=== PATIENT | male | born 1955 | race Caucasian/White ===

== ENCOUNTER 2020-11-30 05:37 | Day surgery (SDC) | payer MEDICARE ==
[~2020-11-30 05:37] MED LIST: AMIODARONE HCL200 MG PO; ASCORBIC ACID500 MG PO; B COMPLEX1 EACH PO; DICLOFENAC SODI75 MG PO; ELIQUIS5 MG PO; FEOSOL325 MG PO; GLUCOSAMINE CH1 EAC2 PO; LIPITOR 10MG TA10 MG PO; LOPRESSOR25 MG PO; NORCO 5-325 TA1 EACH PO; PANTOPRAZOLE SO40 MG PO; PERCOCET 5-3251 EACH PO; PROTONIX 40MG T40 MG PO; SERTRALINE HCL50 MG PO; VITAMIN B-121000 MC1 PO; VOLTAREN **OUT50 MG PO; ZOLOFT50 MG PO
[2020-11-30] MEDS ORDERED: PERCOCET 5-3251 EACH PO (07:28)
--- NOTE | 2020-11-30 15:59 | NUR ---
PT. WILL D/C HOME. HE IS GETTING A ROLLING WALKER FROM [facility]. HE REQUEST OUTPT. AT [facility]. FIRST APPT. IS 12/03/20 @ 2:00 P.M.
--- NOTE | 2020-11-30 16:51 | NUR ---
MET WITH PT. HE WAS CONCERNED THAT HE DID NOT HAVE THERAPY TODAY. ADVISED HIM I WOULD TEXT [facility]UA. ALSO, CHECKED THERAPY NOTES AND [facility] ADVISED PT. OF THIS INFORAMTION. HE STATED THAT HE JUST DOESN'T REMEMBER HAVING THERAPY. ADVISED I WOULD HAVE [facility] SPEAK WITH HIM TOMORROW.
[2020-12-01 05:49] LABS: BASOPHIL 0.3 % (0-2); EOSINOPHIL 0.3 % (0-7); HCT 32.1 % (42.0-52.0); LYMPHOCYTE 16.2 % (15-48); MCH 33.1 pg (25.0-31.0); MCHC 34.3 g/dL (32.0-36.0); MCV 96.7 fL (78.0-100.0); MONOCYTE 11.1 % (0-12); MPV 9.9 fL (6.0-9.5); NEUTROPHIL 71.5 % (41-80); NRBC 0; PLT 158 K/uL (150-400); RBC 3.32 M/uL (4.70-6.00); RDW 12.5 % (11.5-14.0); WBC 10.3 K/uL (4.0-10.5)
[2020-12-01 06:04] LABS: BUN/CREAT RATIO (CALC) 20.4 RATIO; CREATININE 0.98 mg/dL (0.67-1.17); POTASSIUM 3.9 mmol/L (3.5-5.1)
[2020-12-01] MEDS ORDERED: ULTRA-LIGHT RO1 EACH XX (11:12)
[2020-12-01] MEDS ORDERED: FEOSOL325 MG PO (11:13)
== END 2020-12-01 11:24 | disposition home or self-care (01) ==
LOC: FAS 05:37
PROVIDERS: Orthopaedic Surgery
DX: M16.12 Unilateral primary osteoarthritis, left hip (principal); I10 Essential (primary) hypertension; I48.20 Chronic atrial fibrillation, unspecified; E78.5 Hyperlipidemia, unspecified; K21.9 Gastro-esophageal reflux disease without esophagitis; Z87.891 Personal history of nicotine dependence; Z79.01 Long term (current) use of anticoagulants; Z79.899 Other long term (current) drug therapy
CPT/HCPCS: 36415; 73501; 76000; 80048; 85025; 86850; 86900; 86901; 94010; 94762; 97110; 97116; 97162; 97165; 97535; C1776; J0171; J0697; J1100; J1170; J1885; J2270; J2405; J2704; J2710; J2795; J3010; J7120